=== PATIENT | male | born 1975 | race Caucasian/White ===

== ENCOUNTER 2019-12-31 10:00 | Emergency (ER) | payer BC, SELFPAY ==
--- NOTE | 2019-12-31 10:19 | ED.URI ---
HPI - URI/Sore Throat General Chief Complaint: Upper Respiratory Infection Stated Complaint: Fever/watery eyes/congestion Time Seen by Provider: 12/31/19 10:19 Source: patient and RN notes reviewed History of Present Illness HPI Narrative: Patient is a 44-year-old male who presents the urgent care with complaints of watery eyes, fever, congestion, runny nose, mild sore throat with cough. States that he has had an intermittent productive cough. Denies any wheezing or shortness of breath. States that symptoms started Monday. Has been using TheraFlu and Sudafed with minimal relief. Patient states he is also taking ibuprofen. No other acute complaints. No acute distress noted. Patient read the plan of care. Related Data Home Medications Medication Instructions Recorded Confirmed amlodipine 10 mg DAILY 12/31/19 12/31/19 Allergies Allergy/AdvReac Type Severity Reaction Status Date / Time Honey Bee Allergy Unknown NOT SURE Uncoded 12/12/17 17:53 Review of Systems Review of Systems: Narrative: CONSTITUTIONAL: Reports of fevers EYES: Denies visual changes, redness, or discharge. ENT: Reports of rhinorrhea, congestion, mild sore throat CARDIOVASCULAR: Denies chest pain, palpitations, or edema. RESPIRATORY: Reports of intermittent productive cough without wheezing or dyspnea GASTROINTESTINAL: Denies abdominal pain, nausea, vomiting, or diarrhea. GENITOURINARY: Denies dysuria or hematuria. SKIN: Denies rash or itching. MUSCULOSKELETAL: Denies back pain, joint pain, or myalgia. NEUROLOGIC: Denies headache, numbness, or weakness. All other systems reviewed are negative, except as documented in HPI. [facility] Social History Social History Gender identity (if verbalized by the patient): Male Comments At the time of my signature, I reviewed and agree with the nursing past medical, surgical, social, and family history. There is no relevant family history pertinent to the patient complaint. Exam Narrative: Exam Narrative: GENERAL: This is a well-nourished, well-developed patient, in no apparent distress. HEAD: normocephalic, atraumatic. EYES: PERRL. Sclera clear/white. Vision is grossly intact. EARS: External ears normal, auditory canals clear and without drainage, TMs normal without perforation. Hearing grossly intact. NOSE: External nose normal with no obvious nasal discharge, nares without redness, clear rhinorrhea. THROAT: Mucous membranes moist, posterior pharynx clear. NECK: Neck supple, non-tender without lymphadenopathy CARDIOVASCULAR: Regular rate and rhythm without murmurs, gallops, or rubs. RESPIRATORY: Clear to auscultation. Breath sounds equal bilaterally. No wheezes, rales, or rhonchi. SKIN: warm, intact with no suspicious lesions or rash, good texture and turgor. NEURO: awake, alert, and oriented to person, place and time. There were no obvious focal neurologic abnormalities. EXTREMITIES: No clubbing, cyanosis, or edema. Course Vital Signs Vital signs: Vital Signs Temperature 99.4 F 12/31/19 10:20 Pulse Rate 86 12/31/19 10:20 Respiratory Rate 18 12/31/19 10:20 Blood Pressure 134/85 12/31/19 10:20 Pulse Oximetry 99 12/31/19 10:20 Temperature 99.4 F 12/31/19 10:20 Pulse Rate 86 12/31/19 10:20 Respiratory Rate 18 12/31/19 10:20 Blood Pressure 134/85 12/31/19 10:20 Pulse Oximetry 99 12/31/19 10:20 Reviewed MDM - URI/Sore Throat MDM Narrative Medical decision making narrative: Advised the patient to continue treating symptoms with akhl-vkv-qriysie medications such as Claritin/Flonase/ibuprofen as needed. Be aware that Sudafed will raise blood pressure. Increase water intake and rest. Use humidifier at night. Follow-up with PCP within 2 to 5 days if worsening symptoms or failure to improve. Differential Diagnosis Differential diagnosis: Likely upper respiratory infection, otitis media, sinusitis, viral infection, bronchitis and pharyngitis Critical Care Time Critical Ca
[2019-12-31 10:20] VITALS: BP 134/85; PULSE 86; RESP 18; TEMP 37.4; O2SAT 99
== END 2019-12-31 10:38 | disposition home or self-care (01) ==
PROVIDERS: Emergency Provider Nurse Practitioner Family
DX: J06.9 Acute upper respiratory infection, unspecified (principal); I10 Essential (primary) hypertension; K21.9 Gastro-esophageal reflux disease without esophagitis
CPT/HCPCS: 99211; G0463

== ENCOUNTER 2021-02-25 23:23 | Emergency (ER) | payer BC, SELFPAY ==
[2021-02-25 23:28] VITALS: BP 165/94; PULSE 89; RESP 17; TEMP 36.2; O2SAT 97
--- NOTE | 2021-02-25 23:43 | PC.NURSE ---
Patient states he does not wish to be seen anymore and will just wait to see an Urgent Care in the morning. Patient advised to return if symptoms persist or worsen.
== END 2021-02-26 00:57 | disposition left against medical advice (07) ==
DX: Z53.21 Procedure and treatment not carried out due to patient leaving prior to being seen by health care provider (principal)
CPT/HCPCS: 99199

== ENCOUNTER 2023-09-07 00:27 | Emergency (ER) | payer BC, OTHER, SELFPAY ==
[2023-09-07] VITALS (7 sets, daily range): BP systolic 146–202; BP diastolic 79–99; PULSE 61–89; RESP 10–22; TEMP 36.4–36.7; O2SAT 95–100
--- NOTE | ~2023-09-07 | CT_ITS ---
CT of the Abdomen and Pelvis: Indication: Abdominal Technique: 2.5 mm axial scans were obtained through the abdomen and pelvis following intravenous adm inistration of 100 cc of Omnipaque 350. Dose reduction technique was used on this scan by utilizing a utomated exposure control and iterative reconstruction technique. The dose-length product (DLP) was 1 548.37 mGy-cm. Findings: Scans through the lung bases are unremarkable. The liver, spleen, pancreas, gallbladder, right adrenal gland, and kidneys are within normal limits. There is probable postoperative change at the left adrenal gland. There are atherosclerotic calcifica tions of the aorta. No lymphadenopathy. No bowel obstruction or bowel wall thickening. There is no evidence to suggest acute appendicitis. Images through the pelvis were performed. Urinary bladder unremarkable. Prostate gland and seminal ve sicles are unremarkable. No ascites. 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 Impression: No acute abnormality. Reviewed, dictated and finalized at [facility] [place]. Impression: No acute abnormality.
[2023-09-07] MEDS: ONDANSETRON INJ 4 MG/2 ML VIAL IV PUSH (01:12)
[2023-09-07] MEDS: SODIUM CHLORIDE 0.9% IV 1,000 ML 999 ML IV CONT ×2 (01:12→03:08)
[2023-09-07 01:17] LABS: Basophils Absolute Auto 0.1 K/mm3 (0.0-0.1); Basophils Percent Auto 0.5 % (0.2-1.2); Eosinophils Absolute Auto 0.4 K/mm3 (0-0.3); Eosinophils Percent Auto 3.6 % (0-4.4); Hematocrit 50.8 % (42.0-52.0); Hemoglobin 17.7 g/dL (14.0-18.0); Immature Granulocyte Absolute 0.16 K/mm3 (0.00-0.031); Immature Granulocyte Percent A 1.6 % (0-0.5); Lymphocytes Absolute Auto 3.23 K/mm3 (0.9-3.2); Lymphocytes Percent Auto 31.7 % (18.3-44.2); Mean Corpuscular HGB Conc 34.8 g/dl (32-36); Mean Corpuscular Hemoglobin 30.2 pg (26-34); Mean Corpuscular Volume 86.7 fl (80-100); Mean Platelet Volume 9.5 fl (7.4-10.4); Monocytes Absolute Auto 0.8 K/mm3 (0.1-0.6); Monocytes Percent Auto 8.1 % (2.6-8.5); Neutrophils Absolute Auto 5.6 K/mm3 (1.3-6.7); Neutrophils Percent Auto 54.5 % (45.5-73.1); Platelet Count Result 284 k/mm3 (150-375); Red Blood Count 5.86 M/mm3 (4.6-6.20); Red Cell Distribution Width 12.3 % (11.5-14.5); White Blood Count 10.2 K/mm3 (4.5-10.0)
[2023-09-07 01:28] LABS: Alanine Aminotransferase 31 U/L (6-50); Albumin Level 4.8 g/dL (3.5-5.1); Alkaline Phosphatase 95 U/L (38-126); Anion Gap 14 mmol/L (8-16); Aspartate Amino Transferase 34 U/L (17-59); Bilirubin,Total 0.8 mg/dL (0.2-1.3); Blood Urea Nitrogen 14 mg/dL (9-20); Calcium 9.3 mg/dL (8.4-10.2); Carbon Dioxide 22 mmol/L (22-30); Chloride 100 mmol/L (98-107); Estimated CRCL calculation 94 ml/min; Estimated Glomerular Filt Rate > 60; Glucose 143 mg/dL (65-110); Lipase 134 U/L (23-300); Potassium 3.7 mmol/L (3.4-5.0); Sodium 136 mmol/L (137-145)
[2023-09-07] MEDS: PANTOPRAZOLE SODIUM IV 40 MG VIAL IV PUSH (01:37)
--- NOTE | 2023-09-07 01:39 | ED.ABDPAIN ---
HPI - Abdominal Pain General Chief Complaint: Abdominal Pain <LONNY Arreguin Last Filed: 09/08/23 17:49> Stated Complaint: abd pain <LONNY Arreguin Last Filed: 09/08/23 17:49> Time Seen by Provider: 09/07/23 01:08 <LONNY Arreguin Last Filed: 09/08/23 17:49> Source: patient <LONNY Arreguin Last Filed: 09/08/23 17:49> Mode of arrival: ambulatory <LONNY Arreguin Last Filed: 09/08/23 17:49> Limitations: no limitations <LONNY Arreguin Last Filed: 09/08/23 17:49> History of Present Illness HPI narrative: Patient is 48-year-old male who presents to ED with report of epigastric abdominal pain and nausea and vomiting. Patient reports he developed epigastric abdominal pain this evening. He then developed nausea and vomiting around 10:30 PM. He has been unable to keep down any food or drink since then. Patient states he has had similar symptoms in the past which have been related to pancreatitis and related to something abnormal with his adrenal glands. He states he had a cyst on one of his adrenal glands and had this removed. Patient is a frequent drinker, but denies daily drinking. Denies ETOH use tonight. He denies any diarrhea, vomiting, fevers, urinary problems. <LONNY Arreguin Last Filed: 09/08/23 17:49> Related Data Home Medications: Home Medications Medication Instructions Recorded Confirmed amlodipine 10 mg tablet 10 mg DAILY 12/31/19 12/31/19 <LONNY Arreguin Last Filed: 09/08/23 17:49> Allergies/Adverse Reactions: Allergies Allergy/AdvReac Type Severity Reaction Status Date / Time Honey Bee Allergy Unknown NOT SURE Uncoded 12/12/17 17:53 <LONNY Arreguin Last Filed: 09/08/23 17:49> Review of Systems Review of Systems: CONSTITUTIONAL: Denies fever, chills, or sweats. CARDIOVASCULAR: Denies chest pain. RESPIRATORY: Denies dyspnea. GASTROINTESTINAL: See HPI. GENITOURINARY: Denies dysuria or hematuria. SKIN: Denies rash or itching. MUSCULOSKELETAL: Denies back pain, joint pain, or myalgia. <Floridalma Parsons PA-C - Last Filed: 09/08/23 17:49> All systems reviewed & are unremarkable except as noted in HPI and below <Floridalma Parsons PA-C - Last Filed: 09/08/23 17:49> [facility] Social History Social History: Social History Gender identity (if verbalized by the patient): Male <Floridalma Parsons PA-C - Last Filed: 09/08/23 17:49> Exam Narrative: GENERAL: Uncomfortable appearing, obese with BMI of 36.3, non-toxic, in mild acute distress. Actively vomiting on exam. HEAD: Normocephalic, atraumatic. NECK: Supple. No adenopathy, no masses. RESPIRATORY: Airway patent, respirations nonlabored. Clear to auscultation bilaterally, no rales, rhonchi, wheezing. CARDIOVASCULAR: Regular rate and rhythm without murmurs, rubs, or gallops. Radial pulses 2+ and equal bilaterally. ABDOMINAL: Soft, diffuse epigastric and right upper quadrant abdominal tenderness, nondistended, no hepatosplenomegaly. Normoactive BS. MUSCULOSKELETAL: Moves all extremities. Strength/ROM intact without gross deformities. SKIN: Warm, dry, normal color. No rashes. NEURO: A&O X3. Speech clear. Cranial nerves II-XII grossly intact. Steady gait. No ataxic movements. PSYCHIATRIC: Appropriate mood and affect. Normal interaction. <Floridalma Parsons PA-C - Last Filed: 09/08/23 17:49> Course [facility]/PA Physician Supervision This visit was performed by both the physician and an APC. I performed all aspects of the MDM as documented <Myles Montoya MD - Last Filed: 09/07/23 06:10> Vital Signs Vital signs: Vital Signs Temperature 98.0 F 09/07/23 00:40 Pulse Rate 89 09/07/23 00:40 Respiratory Rate 22 H 09/07/23 00:40 Blood Pressure 172/90 H 09/07/23 00:40 Pulse Oximetry
[2023-09-07] MEDS: MORPHINE SULFATE (*CRX) 4 MG/ML INJ IV PUSH (01:44)
[2023-09-07 02:46] LABS: Appearance Urine Clear (Clear); Bilirubin Urine Negative (Negative); Blood Urine Negative (Negative); Color Urine Yellow (Yellow); Glucose Urine UA Negative (Negative); Ketones Urine 3+ mg/dL (Negative); Leukocyte Esterase Ur Negative LEU/UL (Negative); Nitrate Urine Negative (Negative); Protein Urine Negative (Negative); Specific Grav Ur 1.016 (1.001-1.035); Urobilinogen Urine 0.2 mg/dL (<2.0); pH Urine 8.5 (5.0-9.0)
[2023-09-07 02:49] LABS: Add Urine Microscopic? YES
--- NOTE | 2023-09-07 03:29 | ECG_ITS ---
Measurements Intervals [place] Rate: 62 P: 23 MS: 166 QRS: 44 QRSD: 109 T: 20 QT: 440 QTc: 448 Interpretive Statements SINUS RHYTHM NONSPECIFIC T-WAVE ABNORMALITY ABNORMAL ECG NO PREVIOUS ECG AVAILABLE FOR COMPARISON Electronically Signed On 09-07-2023 9:02:47 CDT by Derrek Benitez M.D.
--- NOTE | 2023-09-07 03:29 | PC.NURSE ---
Patient began complaining of chest discomfort and stated It's not that severe . Notified EDP Dr. Montoya who verbally ordered an EKG.
--- NOTE | 2023-09-07 04:09 | PC.NURSE ---
Patients blood pressure still rising and still elevated. EDP Dr. Montoya aware.
[2023-09-07 05:07] LABS: Troponin I 0.023 ng/mL (0.000-0.034)
[2023-09-07 05:51] LABS: Troponin I < 0.012 ng/mL (0.000-0.034)
== END 2023-09-07 06:19 | disposition home or self-care (01) ==
PROVIDERS: Physician Assistant; Emergency Provider Emergency Medicine
DX: R10.13 Epigastric pain (principal); R11.2 Nausea with vomiting, unspecified; R94.31 Abnormal electrocardiogram [ECG] [EKG]
CPT/HCPCS: 36415; 74177; 80053; 81001; 83690; 84484; 85025; 93005; 96361; 96374; 96375; 99284; C9113; J2270; J2405; J7030; Q9967

== ENCOUNTER 2024-06-01 10:29 | Emergency (ER) | payer BC, OTHER, SELFPAY ==
[2024-06-01 10:38] VITALS: BP 114/87; PULSE 65; RESP 16; TEMP 36.6; O2SAT 96
--- NOTE | 2024-06-01 11:15 | ED.WOUNDLAC ---
HPI - Wound/Laceration General Chief Complaint: Wound/Laceration Stated Complaint: Cut Right Leg Time Seen by Provider: 06/01/24 11:10 Source: patient and RN notes reviewed Mode of arrival: ambulatory Limitations: no limitations History of Present Illness HPI narrative: Patient presents today with a laceration to his right lateral calf that occurred approximately 1 hour prior to exam. He dropped of peripheral clippers which caught him mother falling to the floor. He is up-to-date on his tetanus vaccine. Related Data Home Medications Medication Instructions Recorded Confirmed amlodipine 10 mg tablet 10 mg DAILY 12/31/19 06/01/24 Allergies Allergy/AdvReac Type Severity Reaction Status Date / Time Honey Bee Allergy Unknown NOT SURE Uncoded 06/01/24 10:50 Review of Systems Review of Systems: CONSTITUTIONAL: Denies body aches, fever, chills, or sweats. EYES: Denies visual changes, redness, or discharge. ENT: Denies rhinorrhea, congestion, sore throat, or otalgia. CARDIOVASCULAR: Denies chest pain, palpitations, or edema. RESPIRATORY: Denies cough or dyspnea. GASTROINTESTINAL: Denies abdominal pain, nausea, vomiting, or diarrhea. GENITOURINARY: Denies dysuria or hematuria. SKIN: + right leg laceration MUSCULOSKELETAL: Denies back pain, joint pain, or myalgia. NEUROLOGIC: Denies headache, numbness, tingling, or weakness. PSYCH: Denies depression or anxiety. [facility] Past Medical History Medical History (Updated 06/01/24 @ 11:34 by Izabella Neal, [facility], ) Hypertension Social History Social History Gender identity (if verbalized by the patient): Male Comments At time of signature, I have reviewed and agree with nursing past medical, surgical, social and family history unless otherwise noted. Please see nursing chart for further information. There is no relevant family history pertinent to the presenting complaint Exam Narrative: GENERAL: Well-appearing, well-nourished, and in no acute distress. HEAD: Normocephalic, atraumatic. EYES: EOMI. No redness or drainage. Conjunctivae normal. ENT: Mucous membranes pink and moist. NECK: Normal AROM. CHEST: No respiratory distress. EXTREMITIES: Normal range of motion. No edema. SKIN: Warm, dry, no rash. Capillary refill normal. Normal skin turgor. 3cm superficial linear laceration with 1cm that is slightly deeper than the rest. No active bleeding. NEURO: No focal deficits. Alert and oriented x3. Gait steady. PSYCH: Normal affect. No signs of depression or anxiety. Course Course Level of Care: Express Care Visit Vital Signs Vital signs: Vital Signs Temperature 97.9 F 06/01/24 10:38 Pulse Rate 65 06/01/24 10:38 Respiratory Rate 16 06/01/24 10:38 Blood Pressure 114/87 06/01/24 10:38 Pulse Oximetry 96 06/01/24 10:38 Temperature 97.9 F 06/01/24 10:38 Pulse Rate 65 06/01/24 10:38 Respiratory Rate 16 06/01/24 10:38 Blood Pressure 114/87 06/01/24 10:38 Pulse Oximetry 96 06/01/24 10:38 Reviewed Procedures Laceration Laceration 1: Date: 06/01/24 Time: 11:16 Site: lower extremity Side (If applicable): right Description: linear Depth: simple, single layer Local Anesthetic: lidocaine 1% Amount of anesthesia used (mL): 2 Pre-repair: wound explored and irrigated ====== Skin Level ====== Skin layer closed with: nylon Size (cm): 5-0 Number of sutures: 4 Technique: simple, interrupted ====== Subcutaneous Layer ====== ====== Muscle Layer ====== ====== Tendon Layer ====== Dressing: Dressed with nonadherent dressing. MDM - Wound/Laceration MDM Narrative Medical decision making narrative: Patient was given the option to close the wounds with steristrips and glue as they are not deep. States he would like to close with sutures inste
== END 2024-06-01 12:09 | disposition home or self-care (01) ==
PROVIDERS: Emergency Provider Nurse Practitioner
DX: S81.811A Laceration without foreign body, right lower leg, initial encounter (principal); W26.8XXA Contact with other sharp object(s), not elsewhere classified, initial encounter; I10 Essential (primary) hypertension
CPT/HCPCS: 12002; 99212; G0463